=== PATIENT | male | born 1980 | race Caucasian/White ===

== ENCOUNTER 2017-09-15 05:08 | Emergency (ER) | payer SELFPAY ==
[~2017-09-15] VITALS: Ht 182.9 cm; Wt 95.5 kg
[~2017-09-15 05:08] MED LIST: LORTA5 PO; Z.0.NO CURRENT MEDS
[2017-09-15] MEDS ORDERED: IOHEXOL 350 MG/ML 10 ML VIAL (for RAD DIAG) IVCONTRAST ONE (05:09)
[2017-09-15 05:11] VITALS: BP 157/99; PULSE 86; RESP 14; TEMP 98.4; O2SAT 97
--- NOTE | 2017-09-15 06:06 | PD ---
HPI Chief Complaint: Edema Time Seen by Provider: 05:28 Travel History International Travel<30 days: No Contact w/Intl Traveler<30days: No Traveled to known affect area: No History of Present Illness HPI Patient is a 37-year-old male coming in saying that he feels like he has sudden fluid in his abdomen and his upper part of his legs and he feels like he's also has some swelling fluid in his scrotum. Patient denies having ascites patient denies having hepatitis cirrhosis patient says on not sure I'm worried about that because of done a lot of drugs in my day but I have not injected anything in 5 years. Patient denies any significant past medical history and he admits to smoking marijuana before the feeling came upon him. Pt reports doing lots of cocaine over the last few days and after long discussion he admits to palpitations and CP for 2 days as well PFSH Past Medical History Medical History: Denies Significant Hx Tetanus Vaccination: < 5 Years Influenza Vaccination: No Past Surgical History Surgical History: No Previous Surgery Social History Alcohol Use: Yes (approx 15 drinks a week over 3 days) Tobacco Use: Yes (1 pack a week) Substance Use: Yes (Marijuana socially) Allergies-Medications (Allergen,Severity, Reaction): Coded Allergies: No Known Allergies (Unverified Adverse Reaction, Unknown, 09/15/17) Reported Meds & Prescriptions Reported Meds & Active Scripts Active No Active Prescriptions or Reported Medications Review of Systems Except as stated in HPI: all other systems reviewed are Neg Cardiovascular: Positive: Chest Pain or Discomfort, Irregular Rhythm Gastrointestinal: Positive: Other (fluid filled abdo feeling) Physical Exam Narrative GENERAL: Patient is smiling and seeming somewhat silly but he admits to eating marijuana report he came to the hospital SKIN: Warm and dry. HEAD: Atraumatic. Normocephalic. EYES: Pupils equal and round. No scleral icterus. No injection or drainage. He is holding his eyelids closed but he opens his eyes pupils reactive extraocular motions are intact ENT: No nasal bleeding or discharge. Mucous membranes pink and moist. NECK: Trachea midline. No JVD. CARDIOVASCULAR: Regular rate and rhythm. RESPIRATORY: No accessory muscle use. Clear to auscultation. Breath sounds equal bilaterally. GASTROINTESTINAL: Abdomen soft, non-tender, nondistended. Hepatic and splenic margins not palpable. Percussion and does not elicit any pain in any field MUSCULOSKELETAL: Extremities without clubbing, cyanosis, or edema. No obvious deformities. NEUROLOGICAL: Awake and alert. No obvious cranial nerve deficits. Motor grossly within normal limits. Five out of 5 muscle strength in the arms and legs. Normal speech. PSYCHIATRIC: Appropriate mood and affect; insight and judgment normal POC U/S was negative no fluid. Data Data Last Documented VS Vital Signs Date Time Temp Pulse Resp B/P (MAP) Pulse Ox O2 Delivery O2 Flow Rate FiO2 09/15/17 10:34 09/15/17 07:45 114 18 97 Room Air 09/15/17 05:11 98.4 Orders Orders Complete Blood Count With Diff (09/15/17 05:53) Comprehensive Metabolic Panel (09/15/17 05:53) Lipase (09/15/17 05:53) Abdomen, Flat & Upright (09/15/17 ) Lorazepam Inj (Ativan Inj) (09/15/17 06:45) Electrocardiogram (09/15/17 ) Ct Abd/Pel W Iv Contrast(Rout) (09/15/17 ) Troponin I (09/15/17 05:57) Iohexol 350 Inj (Omnipaque 350 Inj) (09/15/17 05:09) Sodium Chlor 0.9% 1000 Ml Inj (Ns 1000 M (09/15/17 07:45) Ed Discharge Order (09/15/17 10:10) Labs Laboratory Tests Test 09/15/17 05:57 White Blood Count 9.2 TH/MM3 Red Blood Count 5.11 MIL/MM3 Hemoglobin 15.9 GM/DL Hematocrit 44.9 % Mean Corpuscular Volume 87.9 FL Mean Corpuscular Hemoglobin 31.1 PG Mean Corpuscular Hemoglobin Concent 35.4 % Red Cell Distribution Width 12.9 % Platelet Count 347 TH/MM3 Mean Platelet Volume 7.1 FL Neutrophils (%) (Auto) 57.3 % Lymphocytes (%) (Auto) 29.9 % Monocytes (%) (Auto) 8.0 % Eosinophils (%) (Auto) 3.7 % Basophils (%) (Auto) 1.1 % Neutrophils # (Auto) 5.3 TH/MM3 Lymphocytes # (Auto) 2.8 TH/MM3 Monocytes # (Auto) 0.7 TH/MM3 Eosinophils # (Auto) 0.3 TH/MM3 Basophils # (Auto) 0.1 TH/MM3 CBC Comment DIFF FINAL Differential Comment Blood Urea Nitrogen 11 MG/DL Creatinine 0.90 MG/DL Random Glucose 90 MG/DL Total Protein 6.8 GM/DL Albumin 3.7 GM/DL Calcium Level 9.1 MG/DL Alkaline Phosphatase 72 U/L Aspartate Amino Transf (AST/SGOT) 12 U/L Alanine Aminotransferase (ALT/SGPT) 19 U/L Total Bilirubin 0.4 MG/DL Sodium Level 136 MEQ/L Potassium Level 4.0 MEQ/L Chloride Level 101 MEQ/L Carbon Dioxide Level 27.3 MEQ/L Anion Gap 8 MEQ/L Estimat Glomerular Filtration Rate 96 ML/MIN Troponin I LESS THAN 0.02 NG/ML Lipase 773 U/L [facility] Medical Decision Making Medical Screen Exam Complete: Yes Emergency Medical Condition: Yes Differential Diagnosis Differential diagnosis abdomen pain NOS ascites secondary to cirrhosis versus pancreatitis versus cholecystitis versus gastritis versus somatizations due to marijuana intoxication Narrative Course Patient's lipase is 775 x-ray shows no signs of ascites bedside point of care ultrasound shows no fluid in Morison's pouch bladder images shows no fluid below the bladder and spleen renal no fluid patient is tachycardic he is given Ativan and a CAT scan is ordered to rule out pancreatitis. Also troponin is added. His EKG is sinus tachycardia at 110 Procedures Procedure Narrative POC u/s FAST bedside Negative for fluid in ABDOMEN Scripts No Active Prescriptions or Reported Meds Stevan Alcantara MD Sep 15, 2017 06:06
[2017-09-15 06:12] LABS: AUTOMATED NEUTROPHIL # 5.3 TH/MM3 (1.8-7.7); BASOPHIL # 0.1 TH/MM3 (0-0.2); BASOPHIL % 1.1 % (0.0-2.0); EOSINOPHIL # 0.3 TH/MM3 (0-0.4); EOSINOPHIL % 3.7 % (0.0-4.0); HEMATOCRIT 44.9 % (39.0-51.0); HEMOGLOBIN 15.9 GM/DL (13.0-17.0); LYMPH % 29.9 % (9.0-44.0); LYMPHOCYTE # 2.8 TH/MM3 (1.0-4.8); MEAN CELL VOLUME 87.9 FL (80.0-100.0); MEAN CORPUSCULAR HEMOGLOBIN 31.1 PG (27.0-34.0); MEAN CORPUSCULAR HGB CONC 35.4 % (32.0-36.0); MEAN PLATELET VOLUME 7.1 FL (7.0-11.0); MONOCYTE # 0.7 TH/MM3 (0-0.9); NEUT % 57.3 % (16.0-70.0); PLATELET COUNT 347 TH/MM3 (150-450); RED BLOOD COUNT 5.11 MIL/MM3 (4.50-5.90); RED CELL DISTRIBUTION WIDTH 12.9 % (11.6-17.2); WHITE BLOOD COUNT 9.2 TH/MM3 (4.0-11.0)
[2017-09-15 06:27] LABS: ALT (GPT) 19 U/L (12-78)
[2017-09-15 06:29] LABS: ALKALINE PHOSPHATASE 72 U/L (45-117); TOTAL BILIRUBIN ADULT 0.4 MG/DL (0.2-1.0); TOTAL PROTEIN 6.8 GM/DL (6.4-8.2)
[2017-09-15 06:37] LABS: ALBUMIN 3.7 GM/DL (3.4-5.0); AST (GOT) 12 U/L (15-37); BICARBONATE 27.3 MEQ/L (21.0-32.0); BLOOD UREA NITROGEN 11 MG/DL (7-18); CALCIUM 9.1 MG/DL (8.5-10.1); CHLORIDE 101 MEQ/L (98-107); GLOMERULAR FILTRATION RATE 96 ML/MIN (>89); GLUCOSE,RANDOM 90 MG/DL (74-106); LIPASE 773 U/L (73-393); SODIUM (NA) 136 MEQ/L (136-145)
--- NOTE | 2017-09-15 06:39 | RADRPT ---
EXAM DATE/TIME: 09/15/2017 06:18 [facility] COMPARISON: No previous studies available for comparison. INDICATIONS : Ascites. Patient states testicular and abdominal swelling. MEDICAL HISTORY : None. SURGICAL HISTORY : None. ENCOUNTER: Initial ACUITY: 1 day PAIN SCORE: 0/10 LOCATION: abdomen. FINDINGS: Supine and upright views of the abdomen were performed. The abdominal bowel gas pattern is normal. No air fluid levels are seen. No abnormal masses, calcifications, or organomegaly is seen. The visu alized lower lungs are clear. No evidence of free intraperitoneal gas. The osseous structures are u nremarkable. CONCLUSION: No acute disease. Daniel Smith MD on September 15, 2017 at 6:36 Board Certified Radiologist. This report was verified electronically.
[2017-09-15] MEDS ORDERED: LORazepam 2 MG/ML VIAL IV PUSH ONE (06:45)
[2017-09-15 07:26] LABS: TROPONIN I LESS THAN 0.02 NG/ML (0.02-0.05)
--- NOTE | 2017-09-15 07:26 | RADRPT ---
EXAM DATE/TIME: 09/15/2017 07:11 [facility] COMPARISON: No previous studies available for comparison. INDICATIONS : Bilateral lower quadrant pain and swelling. IV CONTRAST: 90 cc Omnipaque 350 (iohexol) IV ORAL CONTRAST: No oral contrast ingested. RADIATION DOSE: 9.37 CTDIvol (mGy) MEDICAL HISTORY : None SURGICAL HISTORY : None. ENCOUNTER: Initial ACUITY: 1 day PAIN SCALE: 5/10 LOCATION: Bilateral lower quadrant TECHNIQUE: Volumetric scanning of the abdomen and pelvis was performed. Using automated exposure control and ad justment of the mA and/or kV according to patient size, radiation dose was kept as low as reasonably achievable to obtain optimal diagnostic quality images. DICOM format image data is available electro nically for review and comparison. FINDINGS: LOWER LUNGS: The visualized lower lungs are clear. LIVER: Homogeneous density without lesion. There is no dilation of the biliary tree. No calcified gallston es. SPLEEN: Normal size without lesion. PANCREAS: Within normal limits. KIDNEYS: Normal in size and shape. There is no mass, stone or hydronephrosis. ADRENAL GLANDS: Within normal limits. VASCULAR: There is no aortic aneurysm. BOWEL/MESENTERY: The stomach, small bowel, and colon demonstrate no acute abnormality. There is no free intraperitone al air or fluid. ABDOMINAL WALL: Within normal limits. RETROPERITONEUM: There is no lymphadenopathy. BLADDER: No wall thickening or mass. REPRODUCTIVE: Within normal limits. INGUINAL: There is no lymphadenopathy or hernia. MUSCULOSKELETAL: Within normal limits for patient age. CONCLUSION: No evidence of inflammatory process within the abdomen or pelvis. No adenopathy or concerning mass. N o abnormality seen to account for the patient's clinical presentation.. Theodora Winston MD on September 15, 2017 at 7:22 Board Certified Radiologist. This report was verified electronically.
--- NOTE | 2017-09-15 07:41 | PD ---
Physical Exam Narrative Patient was seen by ED physician and signed out to me. Data Data Last Documented VS Vital Signs Date Time Temp Pulse Resp B/P (MAP) Pulse Ox O2 Delivery O2 Flow Rate FiO2 09/15/17 10:34 09/15/17 07:45 114 18 97 Room Air 09/15/17 05:11 98.4 Orders Orders Complete Blood Count With Diff (09/15/17 05:53) Comprehensive Metabolic Panel (09/15/17 05:53) Lipase (09/15/17 05:53) Abdomen, Flat & Upright (09/15/17 ) Lorazepam Inj (Ativan Inj) (09/15/17 06:45) Electrocardiogram (09/15/17 ) Ct Abd/Pel W Iv Contrast(Rout) (09/15/17 ) Troponin I (09/15/17 05:57) Iohexol 350 Inj (Omnipaque 350 Inj) (09/15/17 05:09) Sodium Chlor 0.9% 1000 Ml Inj (Ns 1000 M (09/15/17 07:45) Ed Discharge Order (09/15/17 10:10) Labs Laboratory Tests Test 09/15/17 05:57 White Blood Count 9.2 TH/MM3 Red Blood Count 5.11 MIL/MM3 Hemoglobin 15.9 GM/DL Hematocrit 44.9 % Mean Corpuscular Volume 87.9 FL Mean Corpuscular Hemoglobin 31.1 PG Mean Corpuscular Hemoglobin Concent 35.4 % Red Cell Distribution Width 12.9 % Platelet Count 347 TH/MM3 Mean Platelet Volume 7.1 FL Neutrophils (%) (Auto) 57.3 % Lymphocytes (%) (Auto) 29.9 % Monocytes (%) (Auto) 8.0 % Eosinophils (%) (Auto) 3.7 % Basophils (%) (Auto) 1.1 % Neutrophils # (Auto) 5.3 TH/MM3 Lymphocytes # (Auto) 2.8 TH/MM3 Monocytes # (Auto) 0.7 TH/MM3 Eosinophils # (Auto) 0.3 TH/MM3 Basophils # (Auto) 0.1 TH/MM3 CBC Comment DIFF FINAL Differential Comment Blood Urea Nitrogen 11 MG/DL Creatinine 0.90 MG/DL Random Glucose 90 MG/DL Total Protein 6.8 GM/DL Albumin 3.7 GM/DL Calcium Level 9.1 MG/DL Alkaline Phosphatase 72 U/L Aspartate Amino Transf (AST/SGOT) 12 U/L Alanine Aminotransferase (ALT/SGPT) 19 U/L Total Bilirubin 0.4 MG/DL Sodium Level 136 MEQ/L Potassium Level 4.0 MEQ/L Chloride Level 101 MEQ/L Carbon Dioxide Level 27.3 MEQ/L Anion Gap 8 MEQ/L Estimat Glomerular Filtration Rate 96 ML/MIN Troponin I LESS THAN 0.02 NG/ML Lipase 773 U/L [facility] Supervised Visit with JARAD: No Interpretation(s) Last Impressions Abdomen/Pelvis CT 09/15/17 0000 Signed Impressions: Service Date/Time: Friday, September 15, 2017 07:11 - CONCLUSION: No evidence of inflammatory process within the abdomen or pelvis. No adenopathy or concerning mass. No abnormality seen to account for the patient's clinical presentation.. Theodora Winston MD Abdomen X-Ray 09/15/17 0000 Signed Impressions: Service Date/Time: Friday, September 15, 2017 06:18 - CONCLUSION: No acute disease. Daniel Smith MD Narrative Course Normal saline solution 1 L IV bolus. 10:10 AM. Patient is no longer tachycardia. Patient's feeling better. Asymptomatic. Patient wants to go home. Diagnosis Primary Impression: Chest pain Qualified Codes: R07.9 - Chest pain, unspecified Additional Impression: Substance abuse Patient Instructions: General Instructions Additional Instruction: Advised [facility]. Follow-up with personal physician. Return if worse. Med/Other Pt SpecificInfo: No Meds Exist/No RX given Scripts No Active Prescriptions or Reported Meds Disposition: 01 DISCHARGE HOME Condition: Stable Nehemiah Chamberlain MD Sep 15, 2017 07:41
[2017-09-15 07:45] VITALS: BP 140/90; PULSE 114; RESP 18; O2SAT 97
[2017-09-15] MEDS ORDERED: SODIUM CHLOR 0.9% 1000 ML INJ 1,000 ML IV ONE (07:45)
--- NOTE | 2017-09-15 13:43 | EKG ---
Date Performed: 09/15/2017 Time Performed: 06:50:21 PTAGE: 37 years EKG: SINUS TACHYCARDIA ABNORMAL RHYTHM ECG NO PREVIOUS TRACING DOCTOR: Ayan De Leon Interpretating Date/Time 09/15/2017 13:41:45
== END 2017-09-15 10:48 | disposition home or self-care (01) ==
LOC: NEPE 05:08
DX: R07.9 Chest pain, unspecified (principal); F12.90 Cannabis use, unspecified, uncomplicated; F17.200 Nicotine dependence, unspecified, uncomplicated
CPT/HCPCS: 74019; 74177; 80053; 83690; 84484; 85025; 93005; 96374; 99285; J2060; J7030; Q9967